=== PATIENT | male | born 1960 ===

== ENCOUNTER 2018-11-18 09:10 | Day surgery (SDC) | payer OTHER ==
[~2018-11-18] VITALS: Ht 172.7 cm; Wt 73.3 kg
[2018-11-18] MEDS ORDERED: ASPI325 (11:17)
--- NOTE | 2018-11-18 11:35 | NUR ---
11/18/18 1135 Melida Gamble PT HAS HX OF IODINE ALLERGY. BETADINE SKIN TEST PERFORMED IN PREOP AT 1125. PT DENIES ITCHING AND DISCOMFORT. NO REACTION VISIBLE ON SKIN.
== END 2018-11-18 13:44 | disposition home or self-care (01) ==
LOC: ORSCSDS 09:10
PROVIDERS: Orthopaedic Surgery
PROC: 0JCK0ZZ Extirpation of Matter from Left Hand Subcutaneous Tissue and Fascia, Open Approach (ICD-10-PCS; principal; 2018-11-18 10:15)
DX: S60.453A Superficial foreign body of left middle finger, initial encounter (principal)
CPT/HCPCS: J0690; J2250; J3010; J7120